=== PATIENT | female | born 1995 | race Caucasian/White ===

== ENCOUNTER 2019-01-04 06:42 | Day surgery (SDC) | payer OTHER ==
[~2019-01-04 06:42] MED LIST: CEFAZOLIN 2 GM/50 ML (PMX) 50 ML IVPB
[2019-01-04] MEDS: SOD CHLORIDE 0.9% 1,000 ML IV (07:00)
[2019-01-04] MEDS ORDERED: SUCCINYLCHOLINE CHLORIDE 100 MG/5 ML SYG IV (09:26)
[2019-01-04] MEDS ORDERED: PROPOFOL 20 ML (09:26)
[2019-01-04] MEDS ORDERED: ROCURONIUM 50 MG INJ (09:26)
[2019-01-04] MEDS ORDERED: SUGAMMADEX SODIUM 200 MG/2 ML VIAL IV (09:26)
[2019-01-04] MEDS ORDERED: LIDOCAINE 2% (SDV) 5 ML INJ (09:26)
[2019-01-04] MEDS ORDERED: MIDAZOLAM 1 MG/ML 2 ML INJ (09:26)
[2019-01-04] MEDS ORDERED: DESFLURANE 15 MIN (09:26)
[2019-01-04] MEDS ORDERED: ROPIVACAINE 0.5 % 30 ML VIAL (09:26)
[2019-01-04] MEDS ORDERED: HYDROmorphONE 1 MG/5 ML IV SYRINGE IV ×3 (09:30)
[2019-01-04] MEDS ORDERED: CEFAZOLIN 1 GM INJ (09:58)
[2019-01-04] MEDS ORDERED: ONDANSETRON 4 MG INJ (09:58)
[2019-01-04] MEDS: HYDROCODONE/APAP (5/325) TAB PO (12:13)
== END 2019-01-04 12:20 | disposition home or self-care (01) ==
LOC: SDS 06:42
DX: K80.10 Calculus of gallbladder with chronic cholecystitis without obstruction (principal)
CPT/HCPCS: 47562; 88304